=== PATIENT | female | born 1985 | race Asian ===

== ENCOUNTER 2016-12-14 00:05 | Inpatient (IN) | payer SELFPAY ==
[~2016-12-14] VITALS: Ht 162 cm; Wt 54.4 kg
[2016-12-14] MEDS ORDERED: OXYTOCIN 20 UNITS in LACTATED RINGERS 1,000 ML IV PRN (00:10)
[2016-12-14] MEDS ORDERED: PROMETHAZINE 25 MG/ML VIAL IVP PRN (00:10)
[2016-12-14] MEDS ORDERED: METHYLERGONOVINE 0.2 MG/ML AMP IM PRN ×2 (00:10→15:05)
[2016-12-14] MEDS ORDERED: LACTATED RINGERS 1,000 ML IV SCH (00:10)
[2016-12-14] MEDS ORDERED: MISOPROSTOL 25 MCG TAB VG PRN ×2 (00:10→10:00)
[2016-12-14] MEDS ORDERED: NALBUPHINE 10 MG/ML AMP IVP PRN (00:10)
[2016-12-14] MEDS ORDERED: OXYTOCIN 10 UNITS/ML VIAL IM PRN ×2 (00:10→15:05)
[2016-12-14] MEDS ORDERED: MISOPROSTOL 25 MCG TAB ONE ×2 (01:01→05:13)
[2016-12-14 01:03] LABS: BILIRUBIN,URINE NEGATIVE (NEGATIVE); BLOOD, URINE NEGATIVE (NEGATIVE); COLOR,URINE YELLOW (YELLOW); LEUKOCYTE ESTERASE ,URINE NEGATIVE (NEGATIVE); NITRITE, URINE NEGATIVE (NEGATIVE); PH,URINE 6.5 (5.0-9.0); UGLUCOSE NEGATIVE (NEGATIVE)
[2016-12-14 01:10] LABS: BASOPHILS # (AUTO) 0.1 K/uL (0.00-0.22); BASOPHILS % (AUTO) 0.9 % (0.0-2.0); EOSINOPHILS # (AUTO) 0.1 K/uL (0-0.4); EOSINOPHILS % (AUTO) 0.9 % (0.0-4.0); HEMATOCRIT 34.7 % (36-48); HEMOGLOBIN 11.3 g/dL (12.0-16.0); LYMPHOCYTES # (AUTO) 1.3 K/uL (2.5-16.5); LYMPHOCYTES % (AUTO) 22.1 % (20.5-51.1); MEAN CORPUSCULAR HEMOGLOBIN 29 pg (27-31); MEAN CORPUSCULAR HGB CONC 33 g/dL (33-37); MEAN CORPUSCULAR VOLUME 88 fL (80-94); MONOCYTES # (AUTO) 0.5 K/uL (0.8-1.0); MONOCYTES % (AUTO) 8.5 % (1.7-9.3); NEUTROPHILS # (AUTO) 3.8 K/uL (1.8-7.7); NEUTROPHILS % (AUTO) 67.6 % (42.2-75.2); PLATELET COUNT (AUTO) 177 K/uL (140-450); RED BLOOD CELL COUNT(AUTO) 3.95 MIL/uL (4.20-5.40); RED CELL DISTRIBUTION WIDTH 22.6 % (11.6-13.7); WHITE BLOOD COUNT (AUTO) 5.8 K/uL (4.8-10.8)
[2016-12-14 01:14] LABS: APPEARANCE,URINE SLIGHTLY HAZY (CLEAR)
[2016-12-14 01:15] LABS: RBC,URINE 0-5 (RARE) /HPF (0-5)
[2016-12-14] MEDS ORDERED: NALBUPHINE HYDROCHLORIDE 10 MG/ML VIAL ONE (03:03)
[2016-12-14] MEDS ORDERED: PROMETHAZINE 25 MG/ML VIAL ONE (03:04)
[2016-12-14] MEDS ORDERED: ROPIVACAINE 0.2%/NS PREMIX 250 ML EPI ONE (07:35)
[2016-12-14] MEDS ORDERED: ROPIVACAINE 0.2%/NS PREMIX 250 ML EPI SCH (07:50)
[2016-12-14] MEDS ORDERED: OXYTOCIN 10 UNITS/ML VIAL ONE (09:52)
[2016-12-14] MEDS ORDERED: oxyCODONE/APAP 5/325 MG 1 TAB TAB PO PRN (15:05)
[2016-12-14] MEDS ORDERED: BENZOCAINE/MENTHOL 20%-0.5% 60 GM CAN TP PRN (15:05)
[2016-12-14] MEDS ORDERED: TEMAZEPAM 15 MG CAP PO PRN (15:05)
[2016-12-14] MEDS ORDERED: MEASLES, MUMPS, AND RUBELLA 1 VIAL SQVAC PRN (15:05)
[2016-12-14] MEDS ORDERED: IBUPROFEN 800 MG TAB PO PRN (15:05)
[2016-12-14] MEDS: HYDROcodone/APAP 5/325 MG 1 TAB TAB PO PRN (20:02)
[2016-12-14] MEDS ORDERED: DOCUSATE SOD/SENNA 50/8.6 MG 1 TAB PO SCH (21:00)
[2016-12-15 05:53] LABS: HEMATOCRIT 31.7 % (36-48); HEMOGLOBIN 10.3 g/dL (12.0-16.0)
--- NOTE | 2016-12-15 09:11 | NUR ---
PATIENT HAS BEEN SCREENED AND CATEGORIZED LOW NUTRITION RISK. PATIENT WILL BE SEEN WITHIN 7 DAYS OF ADMISSION. 12/20/[address]
[2016-12-15 11:33] LABS: RAPID PLASMA REAGIN NON-REACTIVE (Non Reactiv)
[2016-12-15] MEDS ORDERED: BISACODYL 5 MG TABEC PO ONE (20:50)
[2016-12-16] MEDS: HYDROcodone/APAP 5/325 MG 1 TAB TAB PO PRN (02:48)
== END 2016-12-16 14:30 | disposition home or self-care (01) | DRG 775 ==
LOC: MLD 00:05 → MFCC 15:05
PROVIDERS: ADMIT Obstetrics & Gynecology; ATTEND Obstetrics & Gynecology
PROC: 10E0XZZ Delivery of Products of Conception, External Approach (ICD-10-PCS; principal; 2016-12-14)
PROC: 10907ZC Drainage of Amniotic Fluid, Therapeutic from Products of Conception, Via Natural or Artificial Opening (ICD-10-PCS; 2016-12-14)
PROC: 0HQ9XZZ Repair Perineum Skin, External Approach (ICD-10-PCS; 2016-12-14)
PROC: 00HU33Z Insertion of Infusion Device into Spinal Canal, Percutaneous Approach (ICD-10-PCS; 2016-12-14)
PROC: 3E0R3CZ (ICD-10-PCS; 2016-12-14)
DX: O70.0 First degree perineal laceration during delivery (principal); Z37.0 Single live birth; Z3A.39 39 weeks gestation of pregnancy
CPT/HCPCS: 36415; 51702; 59200; 81001; 85018; 85025; 86592; 86886; 86900; 86901; 87086; 90715; J2300; J2550; J2590; J2795; J7120